=== PATIENT | male | born 1930 | race Caucasian/White ===

== ENCOUNTER 2017-05-18 01:21 | Emergency (ER) | payer OTHER ==
[~2017-05-18] VITALS: Ht 172.7 cm; Wt 99.7 kg
[2017-05-18 02:32] LABS: HEMATOCRIT 42.6 % (38.0-50.0); MCH 33.1 PG (29.0-34.0); MCHC 33.8 G/DL (30.0-36.0); MCV 97.9 FL (86-99); MEAN PLAT.VOLUME 10.1 uM^3 (9.0-12.4); PLATELET COUNT 213 K/uL (156-360); RBC DIS.WIDTH-CV 12.6 % (11.8-14.6); RBC DIS.WIDTH-SD 45.4 % (39-53); RED BLOOD COUNT 4.35 M/uL (4.00-5.50); WHITE BLOOD COUNT 18.7 K/uL (4.1-10.2)
[2017-05-18 02:45] LABS: CHLORIDE 103 mEq/L (99-109); POTASSIUM 4.4 mEq/L (3.7-5.4); SODIUM 140 mEq/L (136-147)
[2017-05-18 02:47] LABS: GLUCOSE 107 mg/dL (70-99)
[2017-05-18 02:48] LABS: ANION GAP 9 MEQ/L (2-14)
[2017-05-18 02:49] LABS: TOTAL BILIRUBIN 0.7 mg/dL (0.0-1.0)
[2017-05-18 02:50] LABS: ALKALINE PHOSPHATASE 74 IU/L (3-129)
[2017-05-18 02:51] LABS: GFR ESTIMATE (CALCULATED) 41 mL/min/
[2017-05-18 02:52] LABS: UREA NITROGEN (BUN) 19 mg/dL (9-23)
[2017-05-18 02:53] LABS: ADD MIUA? YES; BILIRUBIN NEGATIVE; BLOOD SMALL; COLOR YELLOW ((YELLOW)); GLUCOSE (STRIP) NEGATIVE; KETONES NEGATIVE; LEUKOCYTES NEGATIVE; NITRITE NEGATIVE; PROTEIN (STRIP) 30; SPECIFIC GRAVITY 1.018 (1.000-1.030); UROBILINOGEN 0.2 MG/DL (0.2-1.0)
[2017-05-18 02:54] LABS: LIPASE 6 U/L (1.0-51.0)
[2017-05-18 03:14] LABS: RED BLOOD CELLS 30-40 /HPF (0-5)
[2017-05-18 03:15] LABS: BACTERIA RARE /HPF; CASTS PRESENT /LPF; CRYSTALS NONE SEEN; EPITHELIAL CELLS RARE /HPF; HYALINE CASTS 0-5 /LPF; MUCUS RARE /LPF; UCUL ADDED? NO; WHITE BLOOD CELLS 0-5 /HPF (0-5)
[2017-05-18] MEDS ORDERED: PERCOCET 5/31 TABLET PO (03:36)
[2017-05-18] MEDS ORDERED: TORADOL10 MG PO (03:36)
[2017-05-18] MEDS ORDERED: ZOFRAN4 MG PO (03:36)
[2017-05-18] MEDS ORDERED: FLOMAX0.4 MG PO (03:36)
[2017-05-18 04:05] VITALS: BP 149/76
[2017-05-18 10:42] LABS: ABS NEUTROPHIL COUNT 6.4; ATYPICAL LYMPHOCYTE 0.9 %; EOSINOPHIL ABS CT 0; INSTRUMENT ABS NEUTROPHIL CT 5.9 K/uL; PLAT.SUFFICIENCY ADEQUATE; SEG.NEUTROPHILS 34.2 % (46.0-76.0)
== END 2017-05-18 04:06 | disposition home or self-care (01) ==
LOC: EME 01:21
PROVIDERS: Emergency Medicine
DX: N20.0 Calculus of kidney (principal); I10 Essential (primary) hypertension; K21.9 Gastro-esophageal reflux disease without esophagitis; Z87.891 Personal history of nicotine dependence
CPT/HCPCS: 74176; 80053; 81003; 83690; 85025; 99281; 99285; J1885; J2405; J3010; J7030

== ENCOUNTER 2018-03-24 13:53 | Inpatient (IN) | payer OTHER ==
[~2018-03-24] VITALS: Ht 172.7 cm; Wt 98.5 kg
[~2018-03-24 13:53] MED LIST: FLOMAX0.4 MG PO; PERCOCET 5/31 TABLET PO; TORADOL10 MG PO; ZOFRAN4 MG PO
[2018-03-24 14:38] LABS: PLATELET COUNT 168 K/uL (156-360)
[2018-03-24 14:44] LABS: HEMATOCRIT 48.6 % (38.0-50.0); HEMOGLOBIN 15.8 G/DL (12.5-16.6); MCH 32.4 PG (29.0-34.0); MCHC 32.5 G/DL (30.0-36.0); MCV 99.6 FL (86-99); NRBC (%) 0.3 /100 WBC (0-0); RBC DIS.WIDTH-CV 13.1 % (11.8-14.6); RBC DIS.WIDTH-SD 48.2 % (39-53); RED BLOOD COUNT 4.88 M/uL (4.00-5.50); WHITE BLOOD COUNT 38.9 K/uL (4.1-10.2)
[2018-03-24 14:47] LABS: CHLORIDE 98 mEq/L (99-109); POTASSIUM 4.9 mEq/L (3.7-5.4); SODIUM 140 mEq/L (136-147)
[2018-03-24 14:48] LABS: GLUCOSE 121 mg/dL (70-99)
[2018-03-24 14:52] LABS: CREATININE 1.4 mg/dL (0.6-1.3); GFR ESTIMATE (CALCULATED) 51 mL/min/ (58.99-99999)
[2018-03-24 14:53] LABS: UREA NITROGEN (BUN) 31 mg/dL (9-23)
[2018-03-24 14:59] LABS: TROP-I INTERPRETATION NEGATIVE; TROPONIN-I < 0.01 ng/mL (0.0-0.30)
[2018-03-24 15:50] LABS: ABS NEUTROPHIL COUNT 22.6; ATYPICAL LYMPHOCYTE 5.5 %; BAND NEUTROPHILS 0.4 % (0-8.0); EOSINOPHIL ABS CT 0.5; EOSINOPHILS 1.4 % (0-5.0); LYMPHOCYTES 26.4 % (15.0-45.0); MONOCYTES 2.3 % (0-9.0); MYELOCYTES 0.4 %; PLAT.SUFFICIENCY ADEQUATE; SEG.NEUTROPHILS 57.7 % (46.0-76.0); SMUDGE CELLS 85.5
[2018-03-24 18:56] LABS: INTER. NORMALIZED RATIO 1.1
[2018-03-24 18:59] LABS: PTT 32.6 SEC (25-37)
[2018-03-24] MEDS ORDERED: XANAX0.25 MG PO (19:20)
[2018-03-24] MEDS ORDERED: LO-DOSE ASPIRIN81 M1 PO (19:21)
[2018-03-24] MEDS ORDERED: COREG25 M1 PO (19:21)
[2018-03-24] MEDS ORDERED: HYZAAR 100-21 TABLET PO (19:22)
[2018-03-24] MEDS ORDERED: PRILOSEC OTC20 MG PO (19:22)
[2018-03-24] MEDS ORDERED: FISH OIL 1,0001 EAC7 PO (19:22)
[2018-03-24] MEDS ORDERED: ONE DAILY1 EAC3 PO (19:22)
[2018-03-24] MEDS ORDERED: ASCORBIC ACID500 M3 PO (19:22)
[2018-03-24 20:00] VITALS: BP 114/82
[2018-03-25 00:15] VITALS: BP 126/77
[2018-03-25 05:13] VITALS: BP 122/80
[2018-03-25 08:00] VITALS: BP 99/64
[2018-03-25 08:27] LABS: PLATELET COUNT 159 K/uL (156-360)
[2018-03-25 08:37] LABS: HEMATOCRIT 48.7 % (38.0-50.0); HEMOGLOBIN 15.5 G/DL (12.5-16.6); MCH 31.4 PG (29.0-34.0); MCHC 31.8 G/DL (30.0-36.0); MCV 98.6 FL (86-99); NRBC (%) 0.2 /100 WBC (0-0); RBC DIS.WIDTH-CV 13.2 % (11.8-14.6); RBC DIS.WIDTH-SD 47.8 % (39-53); RED BLOOD COUNT 4.94 M/uL (4.00-5.50); WHITE BLOOD COUNT 38.5 K/uL (4.1-10.2)
[2018-03-25 10:56] LABS: ABS NEUTROPHIL COUNT 24.4; ANISOCYTOSIS 2+; ATYPICAL LYMPHOCYTE 4.8 %; EOSINOPHIL ABS CT 0; MACROCYTES 2+; MONOCYTES 7.7 % (0-9.0); PLAT.SUFFICIENCY ADEQUATE; SEG.NEUTROPHILS 63.5 % (46.0-76.0); SMUDGE CELLS 15.4
[2018-03-25 12:30] VITALS: BP 110/75
[2018-03-25 15:56] VITALS: BP 114/64
[2018-03-25 20:00] VITALS: BP 124/76
[2018-03-26 00:48] VITALS: BP 123/90
[2018-03-26 04:14] VITALS: BP 121/84
[2018-03-26 05:53] LABS: PLATELET COUNT 144 K/uL (156-360)
[2018-03-26 06:12] LABS: HEMATOCRIT 43.8 % (38.0-50.0); HEMOGLOBIN 14.3 G/DL (12.5-16.6); MCH 32.1 PG (29.0-34.0); MCHC 32.6 G/DL (30.0-36.0); MCV 98.2 FL (86-99); RBC DIS.WIDTH-CV 13.2 % (11.8-14.6); RBC DIS.WIDTH-SD 48.3 % (39-53); RED BLOOD COUNT 4.46 M/uL (4.00-5.50)
[2018-03-26 06:18] LABS: ALBUMIN 2.9 G/DL (3.2-4.8); ALKALINE PHOSPHATASE 50 IU/L (3-129); ALT (GPT) 13 IU/L (3-49); AST (GOT) 11 IU/L (2-34); CHLORIDE 101 MEQ/L (99-109); CREATININE 1.2 MG/DL (0.6-1.3); GFR ESTIMATE (CALCULATED) > 59 mL/min/ (58.99-99999); GLUCOSE 113 mg/dL (70-99); SODIUM 139 MEQ/L (136-147); TOTAL BILIRUBIN 1.1 MG/DL (0.0-1.0); TOTAL PROTEIN 5.5 G/DL (6.4-8.3); UREA NITROGEN (BUN) 30 mg/dL (9-23)
[2018-03-26 06:26] LABS: WHITE BLOOD COUNT 34.4 K/uL (4.1-10.2)
[2018-03-26 07:07] LABS: BASOPHIL (%) 0.2 % (0-1); BASOPHIL COUNT 0.1 K/uL (0-0.1); EOSINOPHIL (%) 0.6 % (0-5); EOSINOPHIL COUNT 0.2 K/uL (0-0.3); IMMATURE GRANULOCYTE (%) 0.5 % (0.0-0.7); LYMPHOCYTE (%) 65.2 % (15-42); LYMPHOCYTE COUNT 22.4 K/uL (1.0-2.8); MONOCYTE (%) 3.7 % (3-12); MONOCYTE COUNT 1.3 K/uL (0-0.8); NEUTROPHIL (%) 29.8 % (45-76); NEUTROPHIL COUNT 10.3 K/uL (1.8-6.4); PLAT.SUFFICIENCY DECREASED
[2018-03-26 09:20] VITALS: BP 118/66
[2018-03-26 12:18] VITALS: BP 126/79
[2018-03-26 17:53] VITALS: BP 121/70
[2018-03-26 20:39] VITALS: BP 130/87
[2018-03-27 00:01] VITALS: BP 126/85
[2018-03-27 04:06] VITALS: BP 130/69
[2018-03-27 07:20] VITALS: BP 113/75
[2018-03-27 12:12] VITALS: BP 129/88
[2018-03-27 17:39] VITALS: BP 121/79
[2018-03-27 21:13] VITALS: BP 100/68
[2018-03-28] VITALS: BP 110/70
[2018-03-28 04:27] VITALS: BP 115/69
[2018-03-28 06:53] LABS: PLATELET COUNT 160 K/uL (156-360)
[2018-03-28 07:25] LABS: ALKALINE PHOSPHATASE 52 IU/L (3-129); ALT (GPT) 14 IU/L (3-49); AST (GOT) 12 IU/L (2-34); CHLORIDE 107 MEQ/L (99-109); CREATININE 1.1 MG/DL (0.6-1.3); GFR ESTIMATE (CALCULATED) > 59 mL/min/ (58.99-99999); GLUCOSE 113 mg/dL (70-99); POTASSIUM 4.3 MEQ/L (3.7-5.4); SODIUM 142 MEQ/L (136-147); TOTAL PROTEIN 5.4 G/DL (6.4-8.3); UREA NITROGEN (BUN) 19 mg/dL (9-23)
[2018-03-28 07:26] LABS: ABS NEUTROPHIL COUNT 16.3; ATYPICAL LYMPHOCYTE 1.3 %; BASOPHILS 0.4 %; EOSINOPHIL ABS CT 0.4; EOSINOPHILS 1.3 % (0-5.0); HEMATOCRIT 42.2 % (38.0-50.0); HEMOGLOBIN 13.7 G/DL (12.5-16.6); LYMPHOCYTES 37.1 % (15.0-45.0); MCH 31.6 PG (29.0-34.0); MCHC 32.5 G/DL (30.0-36.0); MCV 97.5 FL (86-99); MONOCYTES 6.6 % (0-9.0); PLAT.SUFFICIENCY ADEQUATE; RBC DIS.WIDTH-CV 13.2 % (11.8-14.6); RBC DIS.WIDTH-SD 47.7 % (39-53); RED BLOOD COUNT 4.33 M/uL (4.00-5.50); SEG.NEUTROPHILS 53.3 % (46.0-76.0); SMUDGE CELLS 155.9; TOTAL BILIRUBIN 0.7 MG/DL (0.0-1.0)
[2018-03-28 07:28] LABS: WHITE BLOOD COUNT 30.6 K/uL (4.1-10.2)
[2018-03-28 07:40] VITALS: BP 140/88
[2018-03-28 12:10] VITALS: BP 130/96
[2018-03-28] MEDS ORDERED: DUONEB 2.5-0.5 M3 ML AEROSOL (14:06)
[2018-03-28] MEDS ORDERED: XARELTO15 MG PO (14:11)
[2018-03-28 16:23] VITALS: BP 108/74
== END 2018-03-28 18:57 | disposition home health service (06) | DRG 308 ==
LOC: EME 13:53 → 4EAST 18:46 → EDOF 18:46 → ENRESERV 18:49 → 4EAST 19:51
PROVIDERS: Emergency Medicine; Internal Medicine
DX: I48.91 Unspecified atrial fibrillation (principal); I26.99 Other pulmonary embolism without acute cor pulmonale; I82.401 Acute embolism and thrombosis of unspecified deep veins of right lower extremity; C91.10 Chronic lymphocytic leukemia of B-cell type not having achieved remission; E86.0 Dehydration; J43.9 Emphysema, unspecified; I10 Essential (primary) hypertension; M19.90 Unspecified osteoarthritis, unspecified site; Z87.891 Personal history of nicotine dependence; Z99.3 Dependence on wheelchair; K21.9 Gastro-esophageal reflux disease without esophagitis; Z85.01 Personal history of malignant neoplasm of esophagus; E66.9 Obesity, unspecified; Z68.33 Body mass index [BMI] 33.0-33.9, adult
CPT/HCPCS: 71045; 71046; 78582; 80048; 80053; 83880; 84484; 85025; 85379; 85610; 85730; 93005; 93306; 93970; 94640; 94640 76; 94760; 94799; 99202; 99281; 99285; A6214; A9540; A9567; J7030